=== PATIENT | male | born 1975 | race Caucasian/White ===

== ENCOUNTER 2022-08-17 07:45 | Day surgery (SDC) | payer OTHER ==
[2022-08-17] MEDS ORDERED: EPINEPHrine 1 MG/ML AMP ONE (08:21)
[2022-08-17] MEDS ORDERED: Bupivacaine PF 0.5% 30 ML VIAL ONE (08:22)
[2022-08-17] MEDS ORDERED: Fentanyl 250 MCG/5 ML VIAL ONE (08:31)
[2022-08-17] MEDS ORDERED: Midazolam HCl 2 mg/2 ml Vial ONE (08:31)
[2022-08-17] MEDS ORDERED: PROPOFOL 20 ML ONE (08:31)
[2022-08-17] MEDS ORDERED: ceFOXitin 1 GM VIAL ONE (09:23)
[2022-08-17] MEDS ORDERED: PHENYLEPHRINE-NS 100 MCG/ML 10 ML SYRINGE ONE (09:43)
[2022-08-17] MEDS ORDERED: ePHEDrine Sulfate 50 MG/10 ML VIAL ONE (09:49)
[2022-08-17] MEDS ORDERED: SUGAMMADEX SODIUM 200 MG/2 ML VIAL ONE (10:20)
== END 2022-08-17 11:10 | disposition home or self-care (01) ==
LOC: CSHSDC/OP 07:45
PROVIDERS: ATTEND Surgery
PROC: 0DTJ4ZZ Resection of Appendix, Percutaneous Endoscopic Approach (ICD-10-PCS; principal; 2022-08-17)
DX: K35.80 Unspecified acute appendicitis (principal); K42.9 Umbilical hernia without obstruction or gangrene; I10 Essential (primary) hypertension; E78.5 Hyperlipidemia, unspecified; F41.9 Anxiety disorder, unspecified; F32.A Depression, unspecified; Z79.899 Other long term (current) drug therapy; Z98.890 Other specified postprocedural states
CPT/HCPCS: A4649; J0171; J0694; J2250; J2704; J3010; S0020

== ENCOUNTER 2025-03-10 08:40 | Outpatient (CLI) | payer OTHER | END 2025-03-10 08:41 | disposition home or self-care (01) | LOC: CSHSLEEP 08:40 | PROVIDERS: ATTEND Family Medicine | DX: G47.33 Obstructive sleep apnea (adult) (pediatric) (principal); R53.83 Other fatigue; F32.A Depression, unspecified; F41.9 Anxiety disorder, unspecified; E11.9 Type 2 diabetes mellitus without complications; K21.9 Gastro-esophageal reflux disease without esophagitis; R06.83 Snoring; I10 Essential (primary) hypertension | CPT/HCPCS: 95800 ==